=== PATIENT | male | born 1980 | race Caucasian/White ===

== ENCOUNTER 2017-01-03 20:29 | Emergency (ER) | payer SELFPAY ==
[~2017-01-03] VITALS: Ht 172.7 cm; Wt 72.6 kg
[2017-01-03 20:35] VITALS: BP_SYST 142
[2017-01-03] MEDS ORDERED: DIPH-TET-PERTUS Vaccine 0.5 ML VIAL (ADACEL) IM ONE (21:15)
[2017-01-03] MEDS ORDERED: BACITRACIN 1 GM OINT TP ONE (21:15)
[2017-01-03] MEDS ORDERED: LIDOCAINE 1% 10 MG/ML, 20 ML MDV IJ ONE (21:15)
[2017-01-03] MEDS ORDERED: MORPHINE 2 MG/ML INJ. SYRINGE IM ONE (21:30)
[2017-01-03 22:42] VITALS: BP_SYST 136
== END 2017-01-03 22:42 | disposition home or self-care (01) ==
LOC: SED 20:29
DX: S01.511A Laceration without foreign body of lip, initial encounter (principal); W54.0XXA Bitten by dog, initial encounter; Y93.89 Activity, other specified; Y92.89 Other specified places as the place of occurrence of the external cause; Y99.8 Other external cause status
CPT/HCPCS: 12011; 70150; 90471; 90715; 96372; 99284; J2001; J2270

== ENCOUNTER 2018-11-25 10:07 | Emergency (ER) | payer BC ==
[~2018-11-25] VITALS: Ht 170.2 cm; Wt 81.6 kg
[2018-11-25 10:10] VITALS: BP_SYST 129
[2018-11-25] MEDS ORDERED: ACETAMINOPHEN 325 MG TABLET PO ONE (11:45)
[2018-11-25] MEDS ORDERED: CEPHALEXIN 500 MG CAPSULE PO ONE (11:45)
[2018-11-25] MEDS ORDERED: DIPH-TET-PERTUS Vaccine 0.5 ML VIAL (ADACEL) I.M. ONE (12:00)
[2018-11-25] MEDS ORDERED: TRIAMCINOLONE ACETONIDE 40 MG/ML IM ONE (12:15)
[2018-11-25 12:45] VITALS: BP_SYST 129
== END 2018-11-25 12:45 | disposition home or self-care (01) ==
LOC: SED 10:07
DX: L03.113 Cellulitis of right upper limb (principal); L01.00 Impetigo, unspecified
CPT/HCPCS: 90471; 90715; 96372; 99283; J3301